=== PATIENT | male | born 1995 | race Caucasian/White ===

== ENCOUNTER 2022-05-07 16:54 | Emergency (ER) | payer OTHER, SELFPAY ==
[2022-05-07 17:06] VITALS: BP 130/71; PULSE 91; RESP 16; TEMP 37.2; O2SAT 100
--- NOTE | 2022-05-07 17:14 | ED.SKABFB ---
HPI - Skin/Abscess/Foreign Bdy General Chief complaint: Skin/Abscess/Foreign Body Stated complaint: Rash Time Seen by Provider: 05/07/22 17:14 Source: patient Mode of arrival: ambulatory Limitations: no limitations History of Present Illness HPI narrative: 27-year-old male presented for complaint of rash to both arms for over one week. He states it similar to poison tracie rashes he is had in the past. 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 He has been using tea tree oil and hydrocortisone as needed for symptoms and taking Benadryl at night with Zyrtec during the day. States it continues to spread up the arms. Denies other locations of rash. He denies lip, tongue, throat swelling or difficulty breathing. MD complaint: rash Related Data Allergies Allergy/AdvReac Type Severity Reaction Status Date / Time No Known Allergies Allergy Verified 05/07/22 17:21 Review of Systems Review of Systems: CONSTITUTIONAL: Denies body aches, fever, chills, or sweats. EYES: Denies visual changes, redness, or discharge. ENT: Denies rhinorrhea, congestion, sore throat, or otalgia. CARDIOVASCULAR: Denies chest pain, palpitations, or edema. RESPIRATORY: Denies cough or dyspnea. GASTROINTESTINAL: Denies abdominal pain, nausea, vomiting, or diarrhea. SKIN: reports rash, itching MUSCULOSKELETAL: Denies back pain, joint pain, or myalgia. NEUROLOGIC: Denies headache, numbness, tingling, or weakness. PSYCH: Denies depression or anxiety. PMFSH Comments At time of signature, I have reviewed and agree with nursing past medical, surgical, social and family history unless otherwise noted. Please see nursing chart for further information. There is no relevant family history pertinent to the presenting complaint Exam Narrative: GENERAL: Well-appearing EYES: conjunctivae clear, and EOMI. ENT: Mucous membranes moist. Oropharynx without edema, erythema or lesions. CHEST: Clear to auscultation. No respiratory distress. HEART: Regular rate and rhythm. SKIN: Warm, dry. Patches of erythematous vesicles to bilateral forearms, c/w contact dermatitis NEURO: Alert and oriented x3. PSYCH: Normal mood and affect Course Course Emergency Course: Patient is aware of diagnosis, understands and agrees to treatment plan. Anticipatory guidance given. Patient agrees to follow-up as directed and is aware of reasons to seek care at the emergency department. Portions of this record may have been created with voice recognition software Level of Care: Express Care Visit Vital Signs Vital signs: Vital Signs Temperature 98.9 F 05/07/22 17:06 Pulse Rate 91 05/07/22 17:06 Respiratory Rate 16 05/07/22 17:06 Blood Pressure 130/71 05/07/22 17:06 Pulse Oximetry 100 05/07/22 17:06 Oxygen Delivery Room Air 05/07/22 17:06 Temperature 98.9 F 05/07/22 17:06 Pulse Rate 91 05/07/22 17:06 Respiratory Rate 16 05/07/22 17:06 Blood Pressure 130/71 05/07/22 17:06 Pulse Oximetry 100 05/07/22 17:06 Oxygen Delivery Room Air 05/07/22 17:06 Reviewed MDM - Skin/Abscess/Foreign Bdy MDM Narrative Medical decision making narrative: Advised supportive measures. Pt is appropriate for outpt treatment and f/u. Instructed patient to go to nearest ER immediately for any worsening symptoms including but not limited to: fever, spreading rash, pain, sore throat, headache, dizziness, chest pain, trouble breathing, or any symptoms concerning to the patient. Differential Diagnosis Differential diagnosis: Likely abscess of skin or subcutaneous tissue, urticaria, herpes zoster, cellulitis and contact dermatitis Discharge Plan Discharge Clinical Impression: Contact dermatitis Qualifiers: Contact dermatitis type: unspecified Contact dermatitis trigger: non-food plants Qualified Code(s): L25.5 - Unspecified contact dermatitis due to plants, except food Patient Disposition: Home, Self-Care Condition: Stable
== END 2022-05-07 17:30 | disposition home or self-care (01) ==
PROVIDERS: Emergency Provider Nurse Practitioner Family
DX: L25.5 Unspecified contact dermatitis due to plants, except food (principal)
CPT/HCPCS: 99203; G0463

== ENCOUNTER 2022-09-27 17:47 | Emergency (ER) | payer OTHER, MEDICAID, SELFPAY ==
[2022-09-27 17:57] VITALS: BP 139/74; PULSE 106; RESP 20; TEMP 37.8; O2SAT 99
--- NOTE | 2022-09-27 17:58 | ED.URI ---
HPI - URI/Sore Throat General Chief Complaint: Upper Respiratory Infection Stated Complaint: body ache; headache; congestion; Time Seen by Provider: 09/27/22 17:58 Source: patient, RN notes reviewed and old records reviewed Mode of arrival: ambulatory Limitations: no limitations History of Present Illness HPI Narrative: 27-year-old male presents to the [facility] with complaints of body aches, headache, congestion for 2 days. Has been hydrating. Took ibuprofen. Related Data Allergies Allergy/AdvReac Type Severity Reaction Status Date / Time No Known Allergies Allergy Verified 09/27/22 17:53 Review of Systems Review of Systems: All systems reviewed & are unremarkable except as noted in HPI and below Constitutional: Constitutional: Reports as per HPI, Reports body ache(s), Reports chills, Reports daytime sleepiness, Reports fatigue, Reports headache(s) and Reports lethargy Eyes: Eyes: Reports no additional eye complaints ENT: Reports system reviewed and no additional complaints, except as documented Cardiovascular: Cardiovascular: Reports no additional cardiovascular complaints, Denies chest pain and Denies dyspnea Respiratory: Respiratory: Reports no additional respiratory complaints, Denies chest congestion, Denies cough and Denies dyspnea Gastrointestinal: Gastrointestinal: Reports no additional gastrointestinal complaints, Denies abdominal pain, Denies nausea and Denies vomiting Musculoskeletal: Musculoskeletal: Reports no additional musculoskeletal complaints Integumentary/Breasts: Skin/Breast: Reports system reviewed and no additional complaints, except as docu Neurologic: Reports system reviewed and no additional complaints, except as documented Psychiatric: Psychiatric: Reports no additional psychiatric complaints Allergic/Immunologic: Allergic/Immunologic: Reports no additional allergic/immunologic complaints PMFSH Comments At the time of my signature, I reviewed and agree with the nursing past medical, surgical, social, and family history. There is no relevant family history pertinent to the patient complaint. Exam Const: General: cooperative, comfortable, no acute distress, well developed, alert, ill appearing acutely (mild) and well nourished Nutritional Appearance: well nourished Orientation/consciousness: patient oriented x3 Limitations: no limitations HENMT: Head: normal to inspection Ears: hearing grossly normal bilaterally and external ears normal Face/Nose/Sinus: Normal external nose present, Normal nares present, Normal nasal mucous membranes and turbinates present and normal facial exam Face and sinus: normal facial exam Mouth: Yes Normal oral and palatal mucosa present, Yes lip normal and Yes moist mucous membranes Throat: posterior oropharynx normal and uvula midline Eyes: General: appearance normal, both eyes and all related structures Alignment and Position: alignment normal Periorbital: periorbital findings normal Conjunctivae: conjunctivae normal Pupils: Equal, round and reactive pupils present EOM: EOMs intact bilaterally Neck: Neck: normal visual inspection, full ROM, no lymphadenopathy and no meningeal signs Chest: Chest palpation & inspection: normal inspection of the chest Resp: Effort & Inspection: normal respiratory effort and able to speak in complete sentences Auscultation: clear to auscultation bilaterally, no crackles, no rales, no rhonchi and no wheezes Cardio: Rate: regular rate Rhythm: regular rhythm Back/Spine/Pelvis: Cervical Spine: cervical ROM normal Thoracic/Lumbar Spine: No thoracic spinal tenderness Skin: General skin exam: normal color and no rashes or lesions noted Lesions: no lesions Rashes: no rashes Wounds: no wounds Neuro: General: patient oriented x3, gait normal, tone normal, moves all extremities and no meningeal signs Cranial nerves: Yes Equal, round and reactive pupils present Cognition (Neuro): normal cognition Speech: normal speech Gait exa
== END 2022-09-27 18:13 | disposition home or self-care (01) ==
PROVIDERS: Emergency Provider Nurse Practitioner
DX: U07.1 COVID-19 (principal)
CPT/HCPCS: 87426; 87804; 99213; C9803; G0463

== ENCOUNTER 2022-10-02 16:57 | Emergency (ER) | payer OTHER, MEDICAID, SELFPAY ==
[2022-10-02 17:18] VITALS: BP 129/66; PULSE 82; RESP 16; TEMP 36.7; O2SAT 99
--- NOTE | 2022-10-02 18:14 | ED.URI ---
HPI - URI/Sore Throat General Chief Complaint: Upper Respiratory Infection Stated Complaint: covid testing Time Seen by Provider: 10/02/22 18:14 Source: patient and RN notes reviewed Mode of arrival: ambulatory Limitations: no limitations History of Present Illness HPI Narrative: 27-year-old male who tested positive for COVID 5 days ago at our facility is requesting a return to work clearance. Patient reports he completed his quarantine and symptoms are improving. He denies shortness of breath or wheezing, nausea, vomiting, diarrhea, fevers or chills. He endorses occasional sinus congestion and sore throat. MD elicited complaint: cough Related Data Home Medications Medication Instructions Recorded Confirmed No Home Medications 10/02/22 10/02/22 Allergies Allergy/AdvReac Type Severity Reaction Status Date / Time No Known Allergies Allergy Verified 09/27/22 17:53 Review of Systems Review of Systems: per HPI Exam Narrative: GENERAL: well-appearing EYES: PERRLA, conjunctivae clear ENT: Mucous membranes moist. TMs pearly ramirez with dull light reflex bilaterally; no tragal tenderness. CHEST: Clear to auscultation, breath sounds equal. HEART: Regular rate and rhythm. SKIN: Warm, dry, no rash. NEURO: Alert and oriented x3. PSYCH: Normal mood and affect Course Course Emergency Course: Patient is aware of diagnosis, understands and agrees to treatment plan. Anticipatory guidance given. Patient agrees to follow-up as directed and is aware of reasons to seek care at the emergency department. Portions of this record may have been created with voice recognition software Level of Care: Express Care Visit Vital Signs Vital signs: Vital Signs Temperature 98.1 F 10/02/22 17:18 Pulse Rate 82 10/02/22 17:18 Respiratory Rate 16 10/02/22 17:18 Blood Pressure 129/66 10/02/22 17:18 Pulse Oximetry 99 10/02/22 17:18 Oxygen Delivery Room Air 10/02/22 17:18 Temperature 98.1 F 10/02/22 17:18 Pulse Rate 82 10/02/22 17:18 Respiratory Rate 16 10/02/22 17:18 Blood Pressure 129/66 10/02/22 17:18 Pulse Oximetry 99 10/02/22 17:18 Oxygen Delivery Room Air 10/02/22 17:18 reviewed MDM - URI/Sore Throat Differential Diagnosis Differential diagnosis: Likely upper respiratory infection, sinusitis and viral infection Discharge Plan Discharge Clinical Impression: Viral infection Patient Disposition: Home, Self-Care Condition: Stable Instructions: COVID-19 (Coronavirus Disease 2019) (ED) Additional Instructions: The following recommendations have been made by the CDC and local Health Departments, regarding COVID-19: -Those individuals with mild cases of COVID-19 can generally be discontinued from isolation 5 days AFTER the onset of symptoms AND the resolution of fever for 24hrs (without the use of fever-reducing medications)* -When you return to public, wear a mask at all times for an additional 5 days Flonase/nasal spray, Zyrtec, cough syrup cold/flu medications for symptoms as needed Follow up with your primary care provider as needed in 1 week Go to the ER for worsening symptoms or concerns Prescriptions: No Action No Home Medications Follow-up/Referrals: UNKNOWN,DOCTOR [Primary Care Provider] - Stand Alone Forms: Work/School Release IP Time of Disposition: 18:21
== END 2022-10-02 18:28 | disposition home or self-care (01) ==
PROVIDERS: Emergency Provider Nurse Practitioner Family
DX: B34.9 Viral infection, unspecified (principal); Z86.16 Personal history of COVID-19
CPT/HCPCS: 99211; G0463

== ENCOUNTER 2023-04-15 09:55 | Emergency (ER) | payer OTHER, SELFPAY ==
[2023-04-15 10:08] VITALS: BP 116/63; PULSE 92; RESP 16; TEMP 36.6; O2SAT 100
--- NOTE | 2023-04-15 10:44 | ED.SKABFB ---
HPI - Skin/Abscess/Foreign Bdy General Chief complaint: Skin/Abscess/Foreign Body Stated complaint: irritation groin area Time Seen by Provider: 04/15/23 10:35 Source: patient and RN notes reviewed Mode of arrival: ambulatory Limitations: no limitations History of Present Illness HPI narrative: Patient presents today complaining of a 10 day history of irritation and rash to his penis. [facility] and has not had unprotected intercourse since that time. He has been using some weeo-gph-lifmsbq gold Mueller powder an xpcu-cab-hiwputf cream for the past week without much relief of symptoms. States symptoms worsened last night. Reports some mild itching with pain. Denies dysuria. Related Data Allergies Allergy/AdvReac Type Severity Reaction Status Date / Time No Known Allergies Allergy Verified 04/15/23 10:01 Review of Systems Review of Systems: CONSTITUTIONAL: Denies body aches, fever, chills, or sweats. EYES: Denies visual changes, redness, or discharge. ENT: Denies rhinorrhea, congestion, sore throat, or otalgia. CARDIOVASCULAR: Denies chest pain, palpitations, or edema. RESPIRATORY: Denies cough or dyspnea. GASTROINTESTINAL: Denies abdominal pain, nausea, vomiting, or diarrhea. GENITOURINARY: Denies dysuria or hematuria. SKIN: + rash to penis MUSCULOSKELETAL: Denies back pain, joint pain, or myalgia. NEUROLOGIC: Denies headache, numbness, tingling, or weakness. PSYCH: Denies depression or anxiety. PMFSH Comments At time of signature, I have reviewed and agree with nursing past medical, surgical, social and family history unless otherwise noted. Please see nursing chart for further information. There is no relevant family history pertinent to the presenting complaint Exam Narrative: GENERAL: Well-appearing, well-nourished, and in no acute distress. HEAD: Normocephalic, atraumatic. EYES: EOMI. No redness or drainage. Conjunctivae normal. ENT: Mucous membranes pink and moist. NECK: Normal AROM. CHEST: No respiratory distress. :Erythematous rash to shaft and head of penis with fissuring and excoriation. No swelling, induration, drainage noted. No penile discharge noted. No rash to scrotum. No vesicles noted. Exam chaperoned by AMARILIS Greenwood. EXTREMITIES: Normal range of motion. No edema. SKIN: Warm, dry, no rash. Capillary refill normal. Normal skin turgor. NEURO: No focal deficits. Alert and oriented x3. Gait steady. PSYCH: Normal affect. No signs of depression or anxiety. Course Course Level of Care: Express Care Visit Vital Signs Vital signs: Vital Signs Temperature 97.8 F 04/15/23 10:08 Pulse Rate 92 04/15/23 10:08 Respiratory Rate 16 04/15/23 10:08 Blood Pressure 116/63 04/15/23 10:08 Pulse Oximetry 100 04/15/23 10:08 Oxygen Delivery Room Air 04/15/23 10:08 Temperature 97.8 F 04/15/23 10:08 Pulse Rate 92 04/15/23 10:08 Respiratory Rate 16 04/15/23 10:08 Blood Pressure 116/63 04/15/23 10:08 Pulse Oximetry 100 04/15/23 10:08 Oxygen Delivery Room Air 04/15/23 10:08 Reviewed MDM - Skin/Abscess/Foreign Bdy MDM Narrative Medical decision making narrative: Symptoms are likely due to tinea cruris. Will treat with ketoconazole cream. Patient has an appoint with his PCP on May 06 for follow-up. Anticipatory guidance given. Differential Diagnosis Differential diagnosis: Likely dermatophytosis, cellulitis and other (Herpes, syphilis) Critical Care Time Critical Care Time Critical Care Time: No Discharge Plan Discharge Clinical Impression: Tinea cruris Patient Disposition: Home, Self-Care Condition: Stable Instructions: Skin Yeast Infection (ED) Additional Instructions: Please use the ketoconazole as prescribed for at least 2 weeks, 3 if needed. Follow-up with your PCP at the end of the month as scheduled. Change your underwear frequently if sweating or wet.
== END 2023-04-15 10:52 | disposition home or self-care (01) ==
PROVIDERS: Emergency Provider Nurse Practitioner; PCP Family Medicine Adolescent Medicine
DX: B35.6 Tinea cruris (principal); Z86.16 Personal history of COVID-19
CPT/HCPCS: 99213; G0463

== ENCOUNTER 2023-08-07 10:14 | Emergency (ER) | payer OTHER, MEDICAID, SELFPAY ==
--- NOTE | 2023-08-07 10:15 | ED.EAR ---
HPI - Ear Problem General Chief complaint: Ear Stated complaint: Ears Irritation Time Seen by Provider: 08/07/23 10:15 Source: patient Mode of arrival: ambulatory Limitations: no limitations History of Present Illness HPI Narrative: Austin is a 28-year-old male patient presenting to the clinic today with complaints of ear irritation, dizziness, sore throat, and cough times 1-2 days. He reports no known fever or chills. Has been using cough drops for his throat. Woke up this morning having ear pain and dizziness. Related Data Allergies Allergy/AdvReac Type Severity Reaction Status Date / Time No Known Allergies Allergy Verified 08/07/23 10:24 Review of Systems Review of Systems: Pertinent positives per HPI. Patient denies any fever, chills, rash, headache, visual changes, cough, runny nose, shortness of breath, chest pain, palpitations, nausea, vomiting, diarrhea, constipation, abdominal pain, or any urinary issues. PMFSH Past Medical History Medical History COVID-19 Social History Social History Smoking status: Never smoker Lack of Transportation: No Lack of Food: Never True Current Housing: I Have Housing Concerned About Future Housing: No Difficulty Paying Gas/Electric Bills: No Difficulty Paying for Meds: No Currently Unemployed: No Education: High School Diploma/GED Difficulty w/ Childcare or Family Care: No Comments At the time of my signature, I reviewed and agree with the nursing past medical, surgical, social, and family history. There is no relevant family history pertinent to the patient complaint. Exam Narrative: General: Well-developed, well nourished, in no apparent distress Head: Normocephalic, atraumatic Eyes: Pupils equally round and reactive to light bilaterally, EOM intact, sclera and conjunctive clear, no discharge, lids normal Ears: TMs intact, red, and congested, ear canals clear, no drainage, grossly hearing normal. Nose: Nares patent, clear discharge, no inflammation, no sinus tenderness. Mouth: Oropharynx red without lesions or masses, good dentition, MMM. Neck: Supple, trachea midline, mild enlargement of anterior cervical nodes, no thyroid masses or goiter palpable. Cardio: Regular rate and rhythm, s1 and s2 normal, no murmur appreciated. Resp: Clear to auscultation bilaterally anteriorly and posteriorly, no rhonchi, rales, wheezing or rubs Course Course Emergency Course: Portions of this record may have been created with voice recognition software. Level of Care: Express Care Visit Vital Signs Vital signs: Vital signs reviewed Medical Decision Making MDM Narrative Medical decision making narrative: At the time of visit patient is resting comfortably on the exam table. Strep test was positive. I suspect patient has strep pharyngitis and eustachian tube dysfunction. Prescription for amoxicillin and prednisone was sent to the pharmacy and supportive measures were discussed with the patient. Patient is nontoxic appearing. Return precautions were reviewed. Differential Diagnosis Differential Diagnosis: Otitis media, otitis externa, eustachian tube dysfunction, cerumen impaction, strep pharyngitis Discharge Plan Discharge Clinical Impression: Acute streptococcal pharyngitis, Acute dysfunction of both eustachian tubes Patient Disposition: Home, Self-Care Condition: Stable Instructions: Antibiotic Form, Strep Throat (ED), Earache (ED) Additional Instructions: Strep test was positive in the clinic today. Change your toothbrush in 24 hours after initiation of the antibiotics Take prescription medications only as prescribed-amoxicillin and prednisone Increase fluids and stay well hydrated Tylenol/motrin for pain/fever Flonase and OTC antihistamines as directed Vicks vapor rub to open sinuses Sinus r
[2023-08-07 10:24] VITALS: BP 118/78; PULSE 86; RESP 16; TEMP 36.7; O2SAT 100
== END 2023-08-07 10:45 | disposition home or self-care (01) ==
PROVIDERS: Emergency Provider Nurse Practitioner Family; PCP Family Medicine Adolescent Medicine
DX: J02.0 Streptococcal pharyngitis (principal); H69.93 Unspecified Eustachian tube disorder, bilateral; Z86.16 Personal history of COVID-19
CPT/HCPCS: 87880; 99213; G0463

== ENCOUNTER 2023-11-12 07:33 | Outpatient (CLI) | payer OTHER, SELFPAY ==
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
--- NOTE | ~2023-11-12 | XR_ITS ---
EXAMINATION: XR lumbar spine 2-3V DATE: 11/12/2023 08:11 INDICATION: Low back pain TECHNIQUE: Anteroposterior and lateral views of the lumbar spine, and cone-down lateral view of the l umbosacral junction were obtained. COMPARISON: None. FINDINGS: Bone alignment is normal. There is no fracture. The vertebral body heights and intervertebr al disc spaces are maintained. There is mild facet joint osteoarthritis of the lower lumbar spine. Ph leboliths are noted in the pelvis. IMPRESSION: 1. No acute osseous abnormality. Reviewed, dictated and finalized at location L. SITIONAL NURSE
== END 2023-11-12 07:34 ==
PROVIDERS: PCP Family Medicine Adolescent Medicine; Visit Provider Family Medicine Adolescent Medicine
DX: M54.50 Low back pain, unspecified (principal); M25.551 Pain in right hip
CPT/HCPCS: 72100; 73502

== ENCOUNTER 2025-06-17 15:08 | Outpatient (CLI) | payer OTHER, SELFPAY ==
--- OUTSIDE RECORDS SUMMARY | 2024-01-01 05:00 | XMS_ITS ---
Author Organization [facility] Address [address] [place] [address] Care Team Providers Care Donkey Doctor Name Role Phone Ronnie Shukla Primary Care Provider [phone] Yary Espinal Unavailable [phone] REASON FOR VISIT 1 Month Psych F/U & Med Refill Social History Sex Assigned At : Social History Observation Description Sex Assigned At Male Encounters Encounter Location Date Provider Diagnosis [address] [address] 01/01/2024 Yary Espinal Plan Of Treatment No Information Progress Notes * SOMAMARILIS AustinDOB: 7 (30 yo M)Acc No.[id number]:01/01/2024 UNLOCKED PROGRESS NOTE Patient: Austin HUIZAR Provider: KUMAR Castaneda, SHALE PLANER OPERATOR HELPER-BC, PMHNP-BC :1995 A ge:28 Y S ex:Male Date:01/01/2024 Address:[address] [place], [place] Pcp:Ronnie Shukla Subjective: * Chief Complaints: * 1 . 1 Month Psych F/U & Med Refill. * Medical History: Objective: * Vitals: Assessment: Plan: * Treatment: * * Electronic signature of Yary Espinal , [id number] on 06/17/2025 at 04:39 PM CDT Sign off status: Pending * Provider: KUMAR Castaneda, SHALE PLANER OPERATOR HELPER-BC, PMHNP-BC Date: 0 01/01/2024 Generated for Randa brady/Landon/Ludy on: 0 06/17/2025 04:39 PM CDT
--- NOTE | ~2025-06-17 | XR_ITS ---
EXAMINATION: XR knee LT 3V, 06/17/2025 15:52 CDT HISTORY: CHRONIC KNEE PAIN W/LIMITED RANGE OF MOTION COMPARISON: No comparisons available. Findings: No acute fracture or malalignment. No significant degenerative changes. Soft tissues unremarkable. Impression: No acute fracture or malalignment. Reviewed, dictated and finalized at location A. Impression: No acute fracture or malalignment.
--- NOTE | ~2025-06-17 | XR_ITS ---
EXAMINATION: XR knee RT 3V, 06/17/2025 15:52 CDT HISTORY: CHRONIC KNEE PAIN W/LIMITED RANGE OF MOTION COMPARISON: No comparisons available. Findings: No acute fracture or malalignment. No significant degenerative changes. Soft tissues unremarkable. Impression: No acute fracture or malalignment. Reviewed, dictated and finalized at location A. Impression: No acute fracture or malalignment.
[2025-06-17 15:47] LABS: Hematocrit 44.2 % (42.0-52.0); Hemoglobin 15.0 g/dL (14.0-18.0); Mean Corpuscular HGB Conc 33.9 g/dl (32-36); Mean Corpuscular Hemoglobin 28.6 pg (26-34); Mean Corpuscular Volume 84.2 fl (80-100); Platelet Count Result 289 k/mm3 (150-375); Red Blood Count 5.25 M/mm3 (4.6-6.20); White Blood Count 11.6 K/mm3 (4.5-10.0)
[2025-06-17 15:50] LABS: Add Urine Microscopic? NO; Appearance Urine Clear (Clear); Glucose Urine UA Negative (Negative); Leukocyte Esterase Ur Negative LEU/UL (Negative); Nitrate Urine Negative (Negative); Specific Grav Ur 1.024 (1.001-1.035)
[2025-06-17 16:04] LABS: Alanine Aminotransferase 36 U/L (6-50); Albumin Level 4.5 g/dL (3.5-5.1); Alkaline Phosphatase 70 U/L (38-126); Anion Gap 10 mmol/L (4-12); Aspartate Amino Transferase 28 U/L (17-59); Bilirubin,Total 0.5 mg/dL (0.2-1.3); Blood Urea Nitrogen 16 mg/dL (9-20); Calcium 9.1 mg/dL (8.4-10.2); Carbon Dioxide 27 mmol/L (22-30); Chloride 102 mmol/L (98-107); Cholesterol 178 mg/dL (0-200); Estimated Glomerular Filt Rate > 60; Glucose 135 mg/dL (65-110); HDL Direct 29 mg/dL; Potassium 4.1 mmol/L (3.4-5.0); Sodium 139 mmol/L (137-145); Total Protein 8.3 g/dL (6.3-8.2); Triglycerides 215 mg/dL (<150)
--- OUTSIDE RECORDS SUMMARY | 2025-06-17 16:39 | XMS_ITS | Patient Health Record ---
Author Organization [facility] Address [address] [place] [address] Care Team Providers Care Exchange Clerk Name Role Phone ShuklaRonnie cruz Primary Care Provider Allergies No Known Allergies Reason For Referral No Information Medications Medication SIG (Take, Route, Fr equency, Duration) Notes Start Date End Date Status Zoloft 50 MG 1 tablet Orally Once a day; Duration: 30 days Active Adderall XR 20 MG 1 capsule in the mor ariadna Orally Once a day; Duration: 30 days 12/04/2023 Ac tive Social History Tobacco Use: Social History Observation Description Date Details (start date - stop date) Never Smoker NA - NA Sex Assigned At : Social History Observation Description Sex Assigned At Male Tobacco Control (Standard) Question Answer Notes Tobacco use: Nonsmoker Section Notes: Reviewed PDMP Problems Problem Type SNOMED Code ICD Code Onset Dates Problem Status W/U Status Risk Notes Problem Attention deficit hyperactivity disorder (178126689) ADHD (attention deficit hyperactivity disorder) (F90.9) Active confirmed Problem Vitamin D deficiency (43150319) Vitamin D deficiency (E55.9) Active confirmed Problem Generalized anxiety disorder (08803283) TYRON (generalized anxiety disorder) (F41.1) Active confirmed Problem Severe recurrent major depression without psychotic features (18477014) MDD (major depressive disorder), recurrent episode, severe (F33.2) Active confirmed Plan Of Treatment No Information Insurance Providers Payer Name Payer Address Payer Phone Subscriber Number Group Number Insured Name Patient Relationship to Insured Coverage Start Date Coverage End Date [address] [phone] [id number] Austin Ellis Self - patient is the insured [address] [facility] [address] [place] [address] [id number] YadiraAustin olmos Self - patient is the insured 4 [employer] [address] [place] [address] [id number] YadiraAustin olmos Self - patient is the insured 1 2 MEDICAID [address] [facility] [place] [address] [id number] YadiraAustin olmos Self - patient is the insured 4 Medical (General) History Medical History History ICD Code seasonal allergies
[2025-06-17 16:40] LABS: Thyroid Stimulating Hormone 5.240 uIU/mL (0.465-4.680)
[2025-06-17 16:45] LABS: HIV 1/2 Ab P24 Ag Result Negative (Negative)
[2025-06-17 17:27] LABS: MALB Creatinine Ratio 4.5 mg/g (0-30)
[2025-06-17 17:50] LABS: Syphilis IgG/IgM Antibody Non-Reactive (Nonreactive)
[2025-06-17 18:03] LABS: Free T4 Free Thyroxine 1.04 ng/dL (0.78-2.19)
[2025-06-18 07:09] LABS: HSV 1 IgG, Type Spec Reactive (Non Reactive); HSV 2 IgG, Type Spec Non Reactive (Non Reactive)
== END 2025-06-17 15:09 | disposition home or self-care (01) ==
PROVIDERS: PCP Family Medicine Adolescent Medicine; Visit Provider Emergency Medicine
DX: Z00.00 Encounter for general adult medical examination without abnormal findings (principal); M25.562 Pain in left knee; M25.561 Pain in right knee; F31.9 Bipolar disorder, unspecified
CPT/HCPCS: 36415; 73562; 80053; 80061; 81003; 82043; 82306; 84439; 84443; 85027; 86593; 86695; 86696; 86703; 87491; 87591; G0432

== ENCOUNTER 2025-07-23 15:03 | Outpatient (CLI) | payer OTHER, SELFPAY ==
[2025-07-23 15:26] LABS: Hematocrit 44.0 % (42.0-52.0); Hemoglobin 14.8 g/dL (14.0-18.0); Mean Corpuscular HGB Conc 33.6 g/dl (32-36); Mean Corpuscular Hemoglobin 28.5 pg (26-34); Mean Corpuscular Volume 84.8 fl (80-100); Platelet Count Result 252 k/mm3 (150-375); Red Blood Count 5.19 M/mm3 (4.6-6.20); White Blood Count 9.4 K/mm3 (4.5-10.0)
[2025-07-23 15:58] LABS: Free T4 Free Thyroxine 1.02 ng/dL (0.78-2.19)
[2025-07-23 16:19] LABS: Thyroid Stimulating Hormone 3.010 uIU/mL (0.465-4.680)
[2025-07-26 14:08] LABS: Albumin 3.7 g/dL (2.9-4.4); Alpha-1-Globulin 0.2 g/dL (0.0-0.4); Alpha-2-Globulin 0.6 g/dL (0.4-1.0); Gamma Globulin 1.1 g/dL (0.4-1.8)
== END 2025-07-23 15:04 | disposition home or self-care (01) ==
PROVIDERS: PCP Emergency Medicine; Visit Provider Emergency Medicine
DX: R77.9 Abnormality of plasma protein, unspecified (principal); R94.6 Abnormal results of thyroid function studies; D72.819 Decreased white blood cell count, unspecified
CPT/HCPCS: 36415; 84155; 84165; 84439; 84443; 85027